=== PATIENT | female | born 1990 ===

== ENCOUNTER 2022-12-05 09:16 | Inpatient (IN) | payer OTHER ==
[~2022-12-05] VITALS: Ht 160 cm; Wt 86.2 kg
== END 2022-12-12 09:12 | disposition home or self-care (01) | DRG 743 ==
LOC: O/R 12-09 05:48 → OB/GYN 12-09 07:15
PROVIDERS: ADMIT Obstetrics & Gynecology; ATTEND Obstetrics & Gynecology
PROC: 0UB00ZZ Excision of Right Ovary, Open Approach (ICD-10-PCS; principal; 2022-12-09 07:15)
DX: D27.0 Benign neoplasm of right ovary (principal); Z20.822 Contact with and (suspected) exposure to COVID-19